=== PATIENT | female | born 1970 | race Caucasian/White ===

== ENCOUNTER → 2022-08-10 | Outpatient (CLI) | payer OTHER, MEDICARE | LOC: US 09:51 | PROVIDERS: ATTEND Urology | DX: N20.1 Calculus of ureter (principal); R35.1 Nocturia; Z87.442 Personal history of urinary calculi | CPT/HCPCS: 74018; 76770 ==

== ENCOUNTER → 2023-05-20 | Outpatient (REF) | payer OTHER, MEDICARE ==
[~2023-05-20] MED LIST: ABILIFY5 MG PO; AMLODIPINE BESY10 MG PO; ATIVAN1 MG PO; COREG12.5 MG PO; DIOVAN160 MG PO; EFFEXOR XR 3737.5 MG PO; EFFEXOR XR150 MG PO; LOSARTAN POTAS100 MG PO; PROAIR DIGIHAL90 MCG; TUMERIC; ZYPREXA5 MG PO
== END ==
LOC: RAD 13:23
PROVIDERS: ATTEND Urology
DX: N31.9 Neuromuscular dysfunction of bladder, unspecified (principal)
CPT/HCPCS: 72220